=== PATIENT | female | born 1980 | race Caucasian/White ===

== ENCOUNTER → 2024-01-26 09:06 | Outpatient (REF) | payer BC, SELFPAY | LOC: WDC 09:06 | PROVIDERS: ATTENDING PHYSICIAN Obstetrics & Gynecology; FAMILY PHYSICIAN Physician Assistant Medical | DX: N63.20 Unspecified lump in the left breast, unspecified quadrant (principal); N63.21 Unspecified lump in the left breast, upper outer quadrant | CPT/HCPCS: 76642; 77062; 77066 ==

== ENCOUNTER → 2025-04-01 07:16 | Outpatient (REF) | payer BC, SELFPAY | LOC: WDC 07:16 | PROVIDERS: ATTENDING PHYSICIAN Obstetrics & Gynecology; FAMILY PHYSICIAN Physician Assistant Medical | DX: Z12.31 Encounter for screening mammogram for malignant neoplasm of breast (principal) | CPT/HCPCS: 77063; 77067 ==